=== PATIENT | female | born 1965 | race African-American/Black ===

== ENCOUNTER 2024-02-24 19:51 | Emergency (ER) | payer MEDICAID ==
[~2024-02-24] VITALS: Ht 165.1 cm; Wt 62.0 kg
[2024-02-24 19:56] VITALS: TEMP 98.2; O2SAT 99
[2024-02-25] MEDS: HYDROCODONE/ACETAMINOPHEN 5/325MG TABLET PO ONE (00:09)
[2024-02-25] MEDS ORDERED: HYDR-4001 MT (00:28)
[2024-02-25 00:53] VITALS: BP 137/84; PULSE 68; RESP 16; O2SAT 98
== END 2024-02-25 00:56 | disposition home or self-care (01) ==
LOC: ER 19:51
DX: S40.011A Contusion of right shoulder, initial encounter (principal); S50.01XA Contusion of right elbow, initial encounter; S10.93XA Contusion of unspecified part of neck, initial encounter; W01.0XXA Fall on same level from slipping, tripping and stumbling without subsequent striking against object, initial encounter; Y93.89 Activity, other specified; Y92.89 Other specified places as the place of occurrence of the external cause; Y99.8 Other external cause status
CPT/HCPCS: 29105; 73030; 73080; 99284; A4565